=== PATIENT | female | born 1960 | race Caucasian/White ===

== ENCOUNTER 2017-11-06 11:58 | Emergency (ER) | payer OTHER, SELFPAY | END 2017-11-06 16:16 | disposition home or self-care (01) | PROVIDERS: Emergency Provider Internal Medicine; Family Provider Physician Assistant; PCP Physician Assistant; Visit Provider Internal Medicine | DX: R11.0 Nausea (principal); R10.10 Upper abdominal pain, unspecified; R13.10 Dysphagia, unspecified | CPT/HCPCS: 74022; 76700; 80053; 81003; 81015; 83605; 83690; 85025; 96361; 96374; 96375; 99058; 99284; C9113; J1885; J2405 ==

== ENCOUNTER → 2018-03-09 09:14 | Outpatient (CLI) | payer OTHER, SELFPAY ==
--- NOTE | 2018-03-09 | DI.MG.S_ITS ---
BILATERAL DIGITAL SCREENING MAMMOGRAM 3D/2D WITH CAD: 03/09/2018 CLINICAL: Routine screening. Comparison is made to exams dated: 01/15/2017 mammogram, 12/06/2015 mammogram, and 01/17/2014 mammogram - [facility]. The tissue of both breasts is heterogeneously dense. This may lower the sensitivity of mammography. Current study was also evaluated with a Computer Aided Detection (CAD) system. There is a biopsy clip in the left breast. No significant masses, calcifications, or other findings are seen in either breast. There has been no significant interval change. IMPRESSION: NEGATIVE There is no mammographic evidence of malignancy. A 1 year screening mammogram is recommended. This exam was interpreted at Station ID: [id number]. NOTE: For mammograms, a report in lay terms will be sent to the patient. Approximately 15% of breast malignancies will not be visualized mammographically. In the management of a palpable breast mass, a negative mammogram must not discourage biopsy of a clinically suspicious lesion. Electronically Signed By: Jose L swan/radha:03/10/2018 03:27:18 letter sent: Normal Exam ACR BI-RADS Category 1: Negative 3341F
== END ==
PROVIDERS: Family Provider Physician Assistant; PCP Physician Assistant; Visit Provider Physician Assistant
DX: Z12.31 Encounter for screening mammogram for malignant neoplasm of breast (principal)
CPT/HCPCS: 77063; 77067

== ENCOUNTER → 2018-04-27 13:11 | Outpatient (CLI) | payer OTHER, SELFPAY ==
[2018-04-27 19:03] LABS: Alanine Aminotransferase 52 IU/L (9-52); Albumin 4.6 g/dL (3.5-5.0); Albumin Globulin Ratio 1.6 (1.0-2.8); Alkaline Phosphatase 69 U/L (38-126); Aspartate Aminotransferase 42 IU/L (14-36); BUN Creatinine Ratio 16.3 (6-22); Bilirubin Total 0.3 mg/dL (0.2-1.3); Blood Urea Nitrogen 13 mg/dL (7-17); Calcium 9.4 mg/dL (8.4-10.2); Carbon Dioxide 26 mmol/L (22-32); Chloride 101 mmol/L (98-107); Cholesterol 269 mg/dL (140-199); Estimated Glomerular Filt Rate > 60.0 mL/min (>60); Globulin 2.9 g/dL (1.7-4.1); Glucose 104 mg/dL (70-100); HDL Cholesterol 88 mg/dL (40-60); HEMOLYSIS < 15 (0-50); LDL Cholesterol Calculated 142 mg/dL (<100); Potassium 4.7 mmol/L (3.4-5.1); Sodium 140 mmol/L (137-145); Total Protein 7.5 g/dL (6.3-8.2); Triglycerides 196 mg/dL (35-150)
== END ==
PROVIDERS: PCP Physician Assistant; Visit Provider Physician Assistant
DX: E78.5 Hyperlipidemia, unspecified (principal); Z51.81 Encounter for therapeutic drug level monitoring
CPT/HCPCS: 36415; 80053; 80061

== ENCOUNTER → 2018-06-23 14:40 | Outpatient (CLI) | payer OTHER, SELFPAY ==
[2018-06-23 15:51] LABS: Alanine Aminotransferase 44 IU/L (9-52); Albumin 4.8 g/dL (3.5-5.0); Albumin Globulin Ratio 1.7 (1.0-2.8); Alkaline Phosphatase 73 U/L (38-126); Aspartate Aminotransferase 34 IU/L (14-36); Bilirubin Total 0.2 mg/dL (0.2-1.3); Bilirubin Unconjugated 0.1 mg/dL (0.0-1.1); Cholesterol 245 mg/dL (140-199); Globulin 2.8 g/dL (1.7-4.1); HDL Cholesterol 106 mg/dL (40-60); HEMOLYSIS < 15 (0-50); LDL Cholesterol Calculated 119 mg/dL (<100); Total Protein 7.6 g/dL (6.3-8.2); Triglycerides 100 mg/dL (35-150)
== END ==
PROVIDERS: Family Provider Physician Assistant; PCP Physician Assistant; Visit Provider Physician Assistant
DX: E78.2 Mixed hyperlipidemia (principal); R74.0 Nonspecific elevation of levels of transaminase and lactic acid dehydrogenase [LDH]
CPT/HCPCS: 36415; 80061; 80076

== ENCOUNTER → 2019-01-24 12:07 | Outpatient (CLI) | payer OTHER, SELFPAY ==
--- NOTE | 2019-01-24 12:11 | DI.RAD.S_ITS ---
PROCEDURE: XR HIP W PEL IF DONE RT 2V INDICATIONS: right hip pain with decreased ROM abduction TECHNIQUE: AP pelvis with lateral view(s) of the right hip(s). COMPARISON: None. FINDINGS: Bones: No fractures or dislocations. Pelvic ring appears intact. No suspicious bony lesions. Minimal symmetric hip joint osteoarthritis. Soft tissues: The visualized bowel gas pattern is normal. No suspicious soft tissue calcifications. 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 Dictated by: Brett Lemon M.D. on 01/24/2019 at 13:03 Approved by: Brett Lemon M.D. on 01/24/2019 at 13:04
[2019-01-24 12:57] LABS: Erythrocyte Sedimentation Rate 19 MM/HR (0-20)
[2019-01-24 12:58] LABS: Alanine Aminotransferase 30 IU/L (9-52); Albumin 4.5 g/dL (3.5-5.0); Albumin Globulin Ratio 1.6 (1.0-2.8); Alkaline Phosphatase 66 U/L (38-126); Aspartate Aminotransferase 31 IU/L (14-36); BUN Creatinine Ratio 25.7 (6-22); Bilirubin Total 0.3 mg/dL (0.2-1.3); Blood Urea Nitrogen 18 mg/dL (7-17); Calcium 9.7 mg/dL (8.4-10.2); Carbon Dioxide 31 mmol/L (22-32); Chloride 100 mmol/L (98-107); Estimated Glomerular Filt Rate > 60.0 mL/min (>60); Globulin 2.9 g/dL (1.7-4.1); Glucose 113 mg/dL (70-100); HEMOLYSIS < 15 (0-50); Potassium 5.1 mmol/L (3.4-5.1); Sodium 138 mmol/L (137-145); Total Protein 7.4 g/dL (6.3-8.2); Uric Acid 4.4 mg/dL (2.5-6.2)
[2019-01-24 13:03] LABS: Rheumatoid Factor < 8.6 IU/mL (<12.0)
[2019-01-24 13:49] LABS: Vitamin B12 473 pg/mL (239-931)
== END ==
PROVIDERS: PCP Physician Assistant; Visit Provider Physician Assistant
DX: M25.551 Pain in right hip (principal); M25.60 Stiffness of unspecified joint, not elsewhere classified; E53.8 Deficiency of other specified B group vitamins; M25.50 Pain in unspecified joint
CPT/HCPCS: 36415; 73502; 80053; 82607; 84443; 84550; 85651; 86430

== ENCOUNTER → 2019-06-09 09:06 | Outpatient (CLI) | payer OTHER, SELFPAY ==
--- NOTE | 2019-06-09 09:07 | DI.MG.S_ITS ---
BILATERAL DIGITAL SCREENING MAMMOGRAM 3D/2D WITH CAD: 06/09/2019 CLINICAL: Routine screening. Comparison is made to exams dated: 03/09/2018 mammogram, 01/15/2017 mammogram, 12/06/2015 mammogram, 01/17/2014 mammogram, and 12/21/2012 mammogram - [facility]. The tissue of both breasts is heterogeneously dense. This may lower the sensitivity of mammography. Current study was also evaluated with a Computer Aided Detection (CAD) system. There are benign vascular calcifications in both breasts. There also is a biopsy clip in the left breast. No significant masses, calcifications, or other findings are seen in either breast. There has been no significant interval change. IMPRESSION: There is no mammographic evidence of malignancy. A 1 year screening mammogram is recommended. This exam was interpreted at Station ID: [id number]. NOTE: For mammograms, a report in lay terms will be sent to the patient. Approximately 15% of breast malignancies will not be visualized mammographically. In the management of a palpable breast mass, a negative mammogram must not discourage biopsy of a clinically suspicious lesion. Electronically Signed By: Niall marrero/radha:06/09/2019 10:05:46 letter sent: Normal Exam ACR BI-RADS Category 2: Benign Finding(s) 3342F
== END ==
PROVIDERS: PCP Physician Assistant; Visit Provider Physician Assistant
DX: Z12.31 Encounter for screening mammogram for malignant neoplasm of breast (principal)
CPT/HCPCS: 77063; 77067

== ENCOUNTER → 2019-07-15 12:39 | Outpatient (CLI) | payer OTHER, SELFPAY ==
[2019-07-15 14:19] LABS: Alanine Aminotransferase 27 IU/L (<35); Albumin 4.3 g/dL (3.5-5.0); Albumin Globulin Ratio 1.7 (1.0-2.8); Alkaline Phosphatase 72 U/L (38-126); Aspartate Aminotransferase 34 IU/L (14-36); BUN Creatinine Ratio 17.5 (6-22); Bilirubin Total 0.3 mg/dL (0.2-1.3); Blood Urea Nitrogen 14 mg/dL (7-17); Calcium 9.9 mg/dL (8.4-10.2); Carbon Dioxide 29 mmol/L (22-32); Chloride 103 mmol/L (98-107); Cholesterol 221 mg/dL (140-199); Estimated Glomerular Filt Rate > 60.0 mL/min (>60); Globulin 2.5 g/dL (1.7-4.1); Glucose 107 mg/dL (70-100); HDL Cholesterol 85 mg/dL (40-60); HEMOLYSIS < 15 (0-50); LDL Cholesterol Calculated 105 mg/dL (<100); Potassium 3.9 mmol/L (3.4-5.1); Sodium 140 mmol/L (137-145); Total Protein 6.8 g/dL (6.3-8.2); Triglycerides 157 mg/dL (35-150)
[2019-07-15 14:20] LABS: Creatinine Urine Random 68.5 mg/dL
[2019-07-15 14:29] LABS: Microalbumi Creatinin Ratio Ur 8.7 ug/mg CR (<30); Microalbumin Urine Random < 0.6 mg/dL (0-1.6)
== END ==
PROVIDERS: PCP Physician Assistant; Visit Provider Physician Assistant
DX: E78.5 Hyperlipidemia, unspecified (principal); R03.0 Elevated blood-pressure reading, without diagnosis of hypertension
CPT/HCPCS: 36415; 80053; 80061; 82043; 82570

== ENCOUNTER → 2020-02-08 12:41 | Outpatient (CLI) | payer OTHER, SELFPAY ==
[2020-02-08 13:35] LABS: Alanine Aminotransferase 31 IU/L (<35); Albumin 4.5 g/dL (3.5-5.0); Albumin Globulin Ratio 1.7 (1.0-2.8); Alkaline Phosphatase 69 U/L (38-126); Aspartate Aminotransferase 42 IU/L (14-36); BUN Creatinine Ratio 23.8 (6-22); Bilirubin Total 0.3 mg/dL (0.2-1.3); Blood Urea Nitrogen 15 mg/dL (7-17); Calcium 9.2 mg/dL (8.4-10.2); Carbon Dioxide 27 mmol/L (22-32); Chloride 103 mmol/L (98-107); Cholesterol 209 mg/dL (140-199); Estimated Glomerular Filt Rate > 60.0 mL/min (>60); Globulin 2.6 g/dL (1.7-4.1); Glucose 114 mg/dL (70-100); HDL Cholesterol 84 mg/dL (40-60); HEMOLYSIS < 15 (0-50); LDL Cholesterol Calculated 105 mg/dL (<100); Potassium 4.7 mmol/L (3.4-5.1); Sodium 136 mmol/L (137-145); Total Protein 7.1 g/dL (6.3-8.2); Triglycerides 102 mg/dL (35-150)
[2020-02-08 16:28] LABS: Microalbumi Creatinin Ratio Ur 39.9 ug/mg CR (<30); Microalbumin Urine Random < 0.6 mg/dL (0-1.6)
== END ==
PROVIDERS: PCP Physician Assistant; Referring Provider Physician Assistant; Visit Provider Physician Assistant
DX: I10 Essential (primary) hypertension (principal); E78.5 Hyperlipidemia, unspecified
CPT/HCPCS: 36415; 80053; 80061; 82043; 82570

== ENCOUNTER → 2020-02-10 12:01 | Outpatient (CLI) | payer OTHER, SELFPAY ==
--- NOTE | 2020-02-10 12:05 | DI.RAD.S_ITS ---
PROCEDURE: XR CERVICAL SPINE 2V OR 3V INDICATIONS: NECK PAIN TECHNIQUE: 3 view(s) of the cervical spine were acquired. COMPARISON: None. FINDINGS: Bones: No fractures or dislocations to the T1 level. The lateral masses of C1 appear intact on the odontoid view. No suspicious bony lesions. There is mild degenerative disc height reduction at C5-6 and moderate such degenerative change at C6-7 with anterior projecting osteophytes. Soft tissues: No prevertebral soft tissue swelling. IMPRESSION: No trauma or subluxation seen. [id number]-[id number] degenerative disc disease at the low cervical spine best seen at C5-6 through C6-7 as noted. Dictated by: Brett Lemon M.D. on 02/10/2020 at 12:41 Approved by: Brett Lemon M.D. on 02/10/2020 at 12:42
== END ==
PROVIDERS: PCP Physician Assistant; Referring Provider Physician Assistant; Visit Provider Physician Assistant
DX: M50.322 Other cervical disc degeneration at C5-C6 level (principal); R25.2 Cramp and spasm; R20.2 Paresthesia of skin
CPT/HCPCS: 72040

== ENCOUNTER → 2020-07-14 13:45 | Outpatient (CLI) | payer OTHER, SELFPAY ==
--- NOTE | 2020-07-14 | DI.MG.S_ITS ---
BILATERAL DIGITAL SCREENING MAMMOGRAM 3D/2D WITH CAD: 07/14/2020 CLINICAL: Routine screening. Comparison is made to exams dated: 06/09/2019 mammogram, 03/09/2018 mammogram, and 01/15/2017 mammogram - [facility]. The tissue of both breasts is heterogeneously dense. This may lower the sensitivity of mammography. Current study was also evaluated with a Computer Aided Detection (CAD) system. There are benign vascular calcifications in both breasts. There also is a biopsy clip in the left breast. No significant masses, calcifications, or other findings are seen in either breast. There has been no significant interval change. IMPRESSION: BENIGN There is no mammographic evidence of malignancy. A 1 year screening mammogram is recommended. This exam was interpreted at Station ID: [id number]. NOTE: For mammograms, a report in lay terms will be sent to the patient. Approximately 15% of breast malignancies will not be visualized mammographically. In the management of a palpable breast mass, a negative mammogram must not discourage biopsy of a clinically suspicious lesion. Electronically Signed By: Rogelio garcia/radha:07/16/2020 14:05:13 letter sent: Normal Exam ACR BI-RADS Category 2: Benign Finding(s) 3342F
== END ==
PROVIDERS: PCP Physician Assistant; Referring Provider Physician Assistant; Visit Provider Physician Assistant
DX: Z12.31 Encounter for screening mammogram for malignant neoplasm of breast (principal)
CPT/HCPCS: 77063; 77067

== ENCOUNTER → 2021-01-07 15:40 | Outpatient (CLI) | payer OTHER, SELFPAY ==
[2021-01-07 16:49] LABS: Add Manual Diff / Slide Review NO; Basophils Absolute Auto 0 /uL (0-100); Basophils Percent Auto 0.8 % (0-2); Eosinophils Absolute Auto 100 /uL (0-450); Eosinophils Percent Auto 2.3 % (2-4); Hematocrit 38.5 % (36-46); Hemoglobin 12.8 g/dL (12.0-16.0); Lymphocytes Absolute Auto 1300 /uL (1100-4500); Mean Corpuscular HGB Conc 33.3 % (30-36); Mean Corpuscular Hemoglobin 31.7 PG (26-34); Monocytes Absolute Auto 300 /uL (0-900); Monocytes Percent Auto 6.9 % (3-14); Neutrophils Absolute Auto 2400 /uL (1500-7000); Platelet Count 318 X10^3/uL (150-400); Red Blood Cell Count 4.05 X10^6/uL (4.0-5.2); Red Cell Distribution Width 12.7 % (11.6-14.8); White Blood Cell Count 4.1 X10^3/uL (4.5-11.0)
[2021-01-07 16:53] LABS: Prothrombin Time 11.4 SECONDS (10.1-12.7)
[2021-01-07 17:25] LABS: Alanine Aminotransferase 22 IU/L (<35); Albumin 4.2 g/dL (3.5-5.0); Albumin Globulin Ratio 1.3 (1.0-2.8); Alkaline Phosphatase 72 U/L (38-126); Aspartate Aminotransferase 31 IU/L (14-36); BUN Creatinine Ratio 18.8 (6-22); Bilirubin Total 0.2 mg/dL (0.2-1.3); Blood Urea Nitrogen 15 mg/dL (7-17); Calcium 9.3 mg/dL (8.4-10.2); Carbon Dioxide 28 mmol/L (22-32); Chloride 103 mmol/L (98-107); Cholesterol 225 mg/dL (140-199); Estimated Glomerular Filt Rate > 60.0 mL/min (>60); Globulin 3.3 g/dL (1.7-4.1); Glucose 93 mg/dL (70-100); HDL Cholesterol 75 mg/dL (40-60); HEMOLYSIS < 15 (0-50); LDL Cholesterol Calculated 115 mg/dL (<100); Potassium 3.8 mmol/L (3.4-5.1); Sodium 139 mmol/L (137-145); Total Protein 7.5 g/dL (6.3-8.2); Triglycerides 173 mg/dL (35-150)
[2021-01-07 17:27] LABS: Hemoglobin A1C% w Est Avg Glu 5.6 % (4.0-6.0)
[2021-01-07 17:49] LABS: Thyroid Stimulating Hormone 4.58 uIU/mL (0.47-4.68)
[2021-01-07 19:24] LABS: Creatinine Urine Random 121.9 mg/dL
[2021-01-07 19:37] LABS: Microalbumin Urine Random < 0.6 mg/dL (0-1.6)
== END ==
PROVIDERS: PCP Physician Assistant; Referring Provider Physician Assistant; Visit Provider Physician Assistant
DX: E78.5 Hyperlipidemia, unspecified (principal); I10 Essential (primary) hypertension; H35.60 Retinal hemorrhage, unspecified eye; Z13.1 Encounter for screening for diabetes mellitus; Z83.3 Family history of diabetes mellitus
CPT/HCPCS: 36415; 80053; 80061; 82043; 82570; 83036; 84443; 85025; 85610

== ENCOUNTER → 2021-08-09 15:39 | Outpatient (CLI) | payer OTHER, SELFPAY ==
--- NOTE | 2021-08-09 | DI.MG.S_ITS ---
BILATERAL DIGITAL SCREENING MAMMOGRAM 3D/2D WITH CAD: 08/09/2021 CLINICAL: Routine screening. Comparison is made to exams dated: 07/14/2020 mammogram, 06/09/2019 mammogram, and 03/09/2018 mammogram - [facility]. The tissue of both breasts is heterogeneously dense. This may lower the sensitivity of mammography. Current study was also evaluated with a Computer Aided Detection (CAD) system. There are benign vascular calcifications in both breasts. There also is a biopsy clip in the left breast. No significant masses, calcifications, or other findings are seen in either breast. There has been no significant interval change. IMPRESSION: BENIGN There is no mammographic evidence of malignancy. A 1 year screening mammogram is recommended. This exam was interpreted at Station ID: [id number]. NOTE: For mammograms, a report in lay terms will be sent to the patient. Approximately 15% of breast malignancies will not be visualized mammographically. In the management of a palpable breast mass, a negative mammogram must not discourage biopsy of a clinically suspicious lesion. Electronically Signed By: Jarad Shaw M.D., jr/radha:08/09/2021 16:06:03 letter sent: Normal Exam ACR BI-RADS Category 2: Benign Finding(s) 3342F
== END ==
PROVIDERS: PCP Student in an Organized Health Care Education/Training Program; Referring Provider Student in an Organized Health Care Education/Training Program; Visit Provider Student in an Organized Health Care Education/Training Program
DX: Z12.31 Encounter for screening mammogram for malignant neoplasm of breast (principal)
CPT/HCPCS: 77063; 77067

== ENCOUNTER → 2022-06-18 11:13 | Outpatient (CLI) | payer OTHER, SELFPAY ==
[2022-06-18 11:54] LABS: COVID19 -Nasal RAPID Negative (Negative)
== END ==
PROVIDERS: PCP Student in an Organized Health Care Education/Training Program; Visit Provider Surgery
DX: Z01.812 Encounter for preprocedural laboratory examination (principal); Z20.822 Contact with and (suspected) exposure to COVID-19
CPT/HCPCS: 87635; C9803

== ENCOUNTER 2022-06-19 09:05 | Day surgery (SDC) | payer OTHER, SELFPAY ==
[2022-06-19 09:29] VITALS: BP 156/76; PULSE 84; RESP 16; TEMP 36.4; O2SAT 100; BMI 23.3
--- NOTE | 2022-06-19 10:15 | P.HP_ITS ---
History of Present Illness History of Present Illness Date Patient Seen: 06/19/22 Time Patient Seen: 10:15 Chief complaint: SCREENING COLONOSCOPY Narrative: The patient presents for colorectal screening. Previous colonoscopy 11 years ago normal. No personal or family history of colon cancer. On further history denies any recent gastrointestinal symptoms. No nausea, vomiting, abdominal pain, loss of appetite, unexplained weight loss, change in bowel habits, d iarrhea, constipation, melena, hematochezia, or bright red blood per rectum. Patient History Medical History Arthritis Chickenpox Depression Hyperlipidemia Major depression, recurrent, full remission Measles Migraines Mumps Varicose vein of leg (~2014) Surgical History Status post delivery Family & Social History Family History Brother Coronary artery disease Father Migraines Diabetes mellitus Heart disease Mother Diabetes mellitus Heart disease Sister Heart disease Stroke Sister Diabetes mellitus Social History: household members spouse Tobacco & Substance use: Tobacco type cigarettes Smoking Status Former smoker alcohol intake former Substance Use Type marijuana Meds Home Medications and Allergies Home Medications Medication Instructions Recorded Confirmed Type eletriptan 40 mg tablet (Relpax) 40 mg PO PRN PRN #36 tabs 06/09/17 04/02/22 Rx Vitamin B-12 See Rx Instructions .Route .COMPLEX 05/03/18 04/02/22 History Vitamin D3 See Rx Instructions .Route .COMPLEX 05/03/18 04/02/22 History galcanezumab-gnlm 120 mg/mL 120 mg SUBCUT QMONTH #1 mL 04/01/19 06/19/22 Rx subcutaneous pen injector (Emgality Pen) amlodipine 5 mg tablet 5 mg PO DAILY #90 tabs 09/07/19 06/19/22 Rx atorvastatin 20 mg tablet 20 mg PO BEDTIME #90 tabs 09/07/19 06/19/22 Rx butalbital 50 mg-acetaminophen 325 1 cap PO ONCE #10 caps 09/07/19 06/19/22 Rx mg-caffeine 40 mg-codeine 30 mg cap lisinopril 10 mg tablet 10 mg PO DAILY #90 tabs 09/07/19 06/19/22 Rx ondansetron HCl 8 mg tablet 8 mg PO Q8H PRN nausea and 09/07/19 04/02/22 Rx vomiting #20 tabs rizatriptan 10 mg disintegrating 10 mg PO ONCE PRN migraine 09/07/19 04/02/22 Rx tablet (Maxalt-CORE SHAPER SIDES) headache #10 tabs tizanidine 4 mg tablet See Rx Instructions PO BEDTIME PRN 09/07/19 04/02/22 Rx muscle spasticity #90 tabs bupropion HCl 300 mg 24 hr tablet, 300 mg PO QAM 90 days #90 tabs 03/07/22 06/19/22 Rx extended release clonazepam 0.5 mg tablet 0.5 mg PO BEDTIME PRN insomnia 90 03/07/22 06/19/22 Rx days #90 tabs fluoxetine 20 mg capsule 20 mg PO QDAY 90 days #90 caps 03/07/22 06/19/22 Rx dextroamphetamine sulfate 10 mg 20 mg PO QAM 90 days #180 caps 06/16/22 06/19/22 Rx capsule,extended release dextroamphetamine sulfate 10 mg 10 mg PO DAILY PRN Inattention 90 06/16/22 06/19/22 Rx tablet days #90 tabs Allergies Allergy/AdvReac Type Severity Reaction Status Date / Time Opioids - Morphine Analogues AdvReac Severe Vomiting Verified 06/19/22 09:07 Exam Vital Signs (past 8 hours): - 06/19/22 09:29 Temperature 97.6 F Pulse Rate 84 Respiratory Rate 16 Blood Pressure 156/76 H Pulse Oximetry 100 Oxygen Delivery Method Room Air Oxygen Delivery Method Room Air Narrative Exam Narrative: General adult woman alert oriented no acute distress Abdomen soft nontender nondistended Assessment & Plan Assessment & Plan narrative: The patient requires colorectal screening and colonoscopy is recommended. Technical details were discussed. Risks, benefits, alternatives explained. Risks including but not limited to myocardial infarction, aspiration, bleeding, pain, missed lesion, incomplete examination, need for further radiographic studies, colonic perforation, and need for major abdominal surgery were discussed. All questions were answered to their satisfaction, and they are in agreement with this plan. Time Spent With Patient Critical Care time: I spent a total of [] minutes of critical care time on this patient's care today; this time is exclusive of procedural time.
--- NOTE | 2022-06-19 10:16 | PM.OP.COLON ---
Operative Date/Time/Diagnoses Date of procedure: 06/19/22 Time of procedure: 10:16 Pre-op diagnosis: Screening colonoscopy Post-op diagnosis: same Procedure & Clinicians Study performed: Colonoscopy Same procedure as scheduled: Yes Indications: Screening Surgeon: Lucien Prater Procedure Notes Procedure in detail: The history and physical was performed/updated and the patient is ASA class is 1. The procedure was discussed in detail with the patient. Potential risks complications including infection, bleeding, missed diagnosis, perforation, need for surgery, and were explained. Their questions were answered and informed consent was obtained. Patient was brought to the procedure room and placed standard monitoring equipment. The patient's vital signs were monitored continuously throughout the entire procedure. Prior to starting time-out was performed. The patient was placed in the left lateral recumbent position. Procedural sedation was administered by anesthesia. Examination began with a thorough inspection of the perianal area there was no evidence of fissures, fistulae, external hemorrhoids or cutaneous malignancy. The colonoscopy scope was then placed into the anal canal and was advanced to the cecum, which was identified by the ileocecal valve, the appendiceal orifice and the confluence of the taenia. The scope was then slowly withdrawn examining colon thoroughly in all directions, irrigating it of any residual stool. FINDINGS 1. No masses or polyps 2. Sigmoid mild diverticulosis The patient tolerated the procedure well. They will be discharged once criteria are met. The prep was of fair quality. The withdrawl time was 6 minutes. Impression: Normal colonoscopy Post-procedure Recommendations: Colonoscopy in 10 years and High fiber diet Disposition: same day surgery
[2022-06-19] MEDS: ONDANSETRON 4 MG/2 ML INJ IV (10:25)
[2022-06-19] MEDS: LACTATED RINGERS 1,000 ML 200 ML IV (10:25)
[2022-06-19 10:54] VITALS: BP 154/76; PULSE 69; RESP 16; TEMP 36.6; O2SAT 97
[2022-06-19 10:59] VITALS: BP 145/74; PULSE 71; RESP 16; O2SAT 98
[2022-06-19 11:04] VITALS: BP 145/74; PULSE 71; RESP 16; O2SAT 97
[2022-06-19 11:13] VITALS: BP 147/78; PULSE 70; RESP 16; O2SAT 98
== END 2022-06-19 11:23 | disposition home or self-care (01) ==
PROVIDERS: PCP Student in an Organized Health Care Education/Training Program; Referring Provider Surgery; Visit Provider Surgery
PROC: 0DJD8ZZ Inspection of Lower Intestinal Tract, Via Natural or Artificial Opening Endoscopic (ICD-10-PCS; CPT 45378; principal; 2022-06-19 10:00)
DX: Z12.11 Encounter for screening for malignant neoplasm of colon (principal); K57.30 Diverticulosis of large intestine without perforation or abscess without bleeding
CPT/HCPCS: 45378; J2405; J2704

== ENCOUNTER → 2022-11-20 15:22 | Outpatient (CLI) | payer OTHER, SELFPAY ==
--- NOTE | 2022-11-20 | DI.RAD.S_ITS ---
PROCEDURE: XR LUMBAR SPINE 2-3V INDICATIONS: acute left-sided low back pain w/o sciatica TECHNIQUE: 3 views of the lumbar spine were acquired. COMPARISON: None. FINDINGS: Bones: 5 asx-uvo-ctgfuze vertebrae are present. There is normal bony alignment. No vertebral body compression fractures. No suspicious bony lesions. Mild degenerative disc disease at L1-L2, L2-L3 and L3 L4-L4. Mild facet arthropathy at L4-L5 and L5-S1. Soft tissues: Overlying bowel gas pattern is normal. No suspicious soft tissue calcifications. IMPRESSION: Mild degenerative disc and facet disease in lumbar spine. Dictated by: Patel Pacheco M.D. on 11/20/2022 at 16:38 Approved by: Patel Pacheco M.D. on 11/20/2022 at 16:39
== END ==
PROVIDERS: PCP Student in an Organized Health Care Education/Training Program; Referring Provider Student in an Organized Health Care Education/Training Program; Visit Provider Student in an Organized Health Care Education/Training Program
DX: M51.36 Other intervertebral disc degeneration, lumbar region (principal); M47.816 Spondylosis without myelopathy or radiculopathy, lumbar region; M47.817 Spondylosis without myelopathy or radiculopathy, lumbosacral region; M54.50 Low back pain, unspecified
CPT/HCPCS: 72100

== ENCOUNTER → 2023-01-06 15:09 | Outpatient (CLI) | payer OTHER, SELFPAY | PROVIDERS: PCP Student in an Organized Health Care Education/Training Program; Referring Provider Nurse Practitioner Psychiatric/Mental Health; Visit Provider Nurse Practitioner Psychiatric/Mental Health | DX: F33.1 Major depressive disorder, recurrent, moderate (principal); F41.1 Generalized anxiety disorder | CPT/HCPCS: 93005 ==

== ENCOUNTER → 2023-12-21 13:08 | Outpatient (CLI) | payer OTHER, SELFPAY ==
--- NOTE | 2023-12-21 13:09 | DI.MG.S_ITS ---
BILATERAL DIGITAL SCREENING MAMMOGRAM 3D/2D WITH CAD: 12/21/2023 CLINICAL: Routine screening. Comparison is made to exams dated: 08/09/2021 mammogram, 07/14/2020 mammogram, and 06/09/2019 mammogram - [facility]. There are scattered areas of fibroglandular density in both breasts (category b / 25%-50% glandular tissue). Current study was also evaluated with a Computer Aided Detection (CAD) system. There is a biopsy clip in the left breast. No significant masses, calcifications, or other findings are seen in either breast. There has been no significant interval change. IMPRESSION: NEGATIVE There is no mammographic evidence of malignancy. A 1 year screening mammogram is recommended. Based on the Tyrer Cuzick model (a risk assessment model) the patient's lifetime risk is 5.5% and her 10 year risk is 2.4%. According to the ACR, ACS, and NCCN guidelines, an annual breast MRI exam along with mammogram is recommended if the patient's lifetime risk is 20% or greater. This exam was interpreted at Station ID: [id number]. NOTE: For mammograms, a report in lay terms will be sent to the patient. Approximately 15% of breast malignancies will not be visualized mammographically. In the management of a palpable breast mass, a negative mammogram must not discourage biopsy of a clinically suspicious lesion. Electronically Signed By: Nia briggs/radha:12/21/2023 16:22:45 letter sent: Normal Exam ACR BI-RADS Category 1: Negative 3341F
== END ==
PROVIDERS: PCP Student in an Organized Health Care Education/Training Program; Referring Provider Student in an Organized Health Care Education/Training Program; Visit Provider Student in an Organized Health Care Education/Training Program
DX: Z12.31 Encounter for screening mammogram for malignant neoplasm of breast (principal); R92.323 Mammographic fibroglandular density, bilateral breasts
CPT/HCPCS: 77063; 77067

== ENCOUNTER → 2025-03-31 15:37 | Outpatient (CLI) | payer BC, SELFPAY ==
--- NOTE | 2025-03-31 15:39 | DI.RAD.S_ITS ---
PROCEDURE: XR CERVICAL SPINE 2V OR 3V INDICATIONS: NECK PAIN TECHNIQUE: 3 view(s) of the cervical spine were acquired. COMPARISON: [facility], CR, XR CERVICAL SPINE 2V OR 3V, 02/10/2020, 11:56. FINDINGS: Bones: No fractures or dislocations to the T1 level. The lateral masses of C1 appear intact on the odontoid view. Cervical spondylosis centered at C6-C7 with disc height loss and anterior osteophyte and uncovertebral joint hypertrophy. There is some facet joint sclerosis at this level. No suspicious bony lesions. Soft tissues: No prevertebral soft tissue swelling. IMPRESSION: Cervical spondylosis centered at C6-C7. Dictated by: George Santos M.D. on 03/31/2025 at 21:34 Approved by: George Santos M.D. on 03/31/2025 at 21:35
== END ==
PROVIDERS: PCP Physician Assistant; Referring Provider Physician Assistant; Visit Provider Physician Assistant
DX: M47.812 Spondylosis without myelopathy or radiculopathy, cervical region (principal); M54.2 Cervicalgia
CPT/HCPCS: 72040